=== PATIENT | female | born 1980 | race Hispanic/Latino ===

== ENCOUNTER 2021-10-02 06:33 | Day surgery (SDC) | payer BC ==
[2021-09-30 09:20] VITALS: BP 131/74
[2021-09-30 09:39] LABS: BASOPHILS % (AUTO) 0.9 % (0.0-5.0); EOSINOPHILS % (AUTO) 3.9 % (0.0-8.0); HEMATOCRIT 39.9 % (36-48); LYMPHOCYTES % (AUTO) 33.6 % (21.0-51.0); MEAN CORPUSCULAR HEMOGLOBIN 32.8 pg (27.0-33.0); MEAN CORPUSCULAR HGB CONC 34.3 g/dL (32.0-36.0); MEAN CORPUSCULAR VOLUME 95.5 fL (79-99); MONOCYTES % (AUTO) 5.7 % (3.0-13.0); NEUTROPHILS % (AUTO) 55.7 % (40.0-77.0); PLATELET COUNT (AUTO) 188 K/uL (130-400); RED BLOOD CELL COUNT(AUTO) 4.18 MIL/uL (4.00-5.50); RED CELL DISTRIBUTION WIDTH 11.7 % (11.0-15.5); WHITE BLOOD COUNT (AUTO) 4.4 K/uL (4.8-10.8)
[2021-10-02] VITALS (18 sets, daily range): BP systolic 101–126; BP diastolic 57–80
[~2021-10-02] VITALS: Ht 167.6 cm; Wt 71.4 kg
[~2021-10-02 06:33] MED LIST: MULT-1367 PO
[2021-10-02] MEDS ORDERED: METRONIDAZOLE 500MG/100ML BAG 100 ML ONE (06:41)
[2021-10-02] MEDS ORDERED: PHENAZOPYRIDINE HCL 200 MG TABLET ONE (06:42)
[2021-10-02] MEDS ORDERED: CEFAZOLIN SODIUM 1 GM VIAL ONE (06:42)
[2021-10-02] MEDS: LACTATED RINGERS 1000ML 1,000 ML IV SCH ×3 (07:03→10:39)
[2021-10-02] MEDS ORDERED: LIDOCAINE 1%-EPI 1:100,000 20 ML VIAL IJ ONE (07:06)
[2021-10-02] MEDS ORDERED: DEXAMETHASONE SOD PHOSPHATE 4 MG/ML 5ML VIAL ONE (07:17)
[2021-10-02] MEDS ORDERED: BUPIVACAINE LIPOSOME/PF 266 MG/20 ML ML IJ SCH (07:30)
[2021-10-02] MEDS ORDERED: ROCURONIUM 10MG/1ML SYR 10 MG/ML ML ONE (07:33)
[2021-10-02] MEDS ORDERED: MIDAZOLAM HCL 1 MG/ML 2ML VIAL ONE (07:33)
[2021-10-02] MEDS ORDERED: ONDANSETRON 4MG INJ ONE ×2 (07:33→10:43)
[2021-10-02] MEDS ORDERED: PROPOFOL 10 MG/ML 20ML VIAL IV ONE (07:33)
[2021-10-02] MEDS ORDERED: FENTANYL CITRATE PF 50 MCG/1 ML 2ML VIAL ONE ×2 (07:34→09:02)
[2021-10-02] MEDS ORDERED: METRONIDAZOLE 500MG/100ML BAG 100 ML IVPB SCH (08:00)
[2021-10-02] MEDS ORDERED: PHENAZOPYRIDINE HCL 200 MG TABLET PO SCH (08:00)
[2021-10-02] MEDS ORDERED: CEFAZOLIN SODIUM 1 GM VIAL IVP SCH (08:00)
[2021-10-02] MEDS ORDERED: DEXAMETHASONE SOD PHOSPHATE 10MG/ML 1ML VIAL IV SCH (08:00)
[2021-10-02] MEDS ORDERED: GLYCOPYRROLATE 1 MG/5 ML SYRINGE ONE (08:35)
[2021-10-02] MEDS ORDERED: NEOSTIGMINE 5MG/5ML SYR IV ONE (10:00)
[2021-10-02] MEDS ORDERED: KETOROLAC 30MG VIAL (30MG/ML) ONE ×2 (10:13→10:43)
[2021-10-02] MEDS ORDERED: MEPERIDINE-PF 25 MG/ML SYG ONE ×2 (10:43→11:04)
[2021-10-02] MEDS ORDERED: MORPHINE 10MG VIAL ONE (12:06)
[2021-10-02] MEDS ORDERED: ACETAMINOPHEN 500 MG TABLET ONE (12:48)
== END 2021-10-02 14:35 | disposition home or self-care (01) ==
LOC: DAH 06:33
PROVIDERS: ATTEND Obstetrics & Gynecology
DX: N92.0 Excessive and frequent menstruation with regular cycle (principal); R10.2 Pelvic and perineal pain; N72 Inflammatory disease of cervix uteri; N84.1 Polyp of cervix uteri; N83.8 Other noninflammatory disorders of ovary, fallopian tube and broad ligament; N88.8 Other specified noninflammatory disorders of cervix uteri; K21.9 Gastro-esophageal reflux disease without esophagitis; Z83.3 Family history of diabetes mellitus; Z82.49 Family history of ischemic heart disease and other diseases of the circulatory system; Z80.0 Family history of malignant neoplasm of digestive organs; Z79.01 Long term (current) use of anticoagulants; Z98.890 Other specified postprocedural states; Z79.899 Other long term (current) drug therapy
CPT/HCPCS: 36415; 57425; 58571; 84703; 85025; 86850; 86900; 86901; 87635; A4215 ×3; A4221; A4222; A4223; A4344; A4510; A4600; A4649 ×3; A4663; A6260; C9290; C9803; G0168; J0690; J1100; J1885 ×2; J2175 ×2; J2250; J2270; J2405 ×2; J2704; J2710; J3010 ×2; J3490 ×2; J7030; J7120 ×2; S2900